=== PATIENT | female | born 1950 | race Caucasian/White ===

== ENCOUNTER → 2021-07-29 | Emergency (ER) | payer OTHER ==
[~2021-07-29] VITALS: Ht 157.5 cm; Wt 90.7 kg
[~2021-07-29] MED LIST: CEPHALEXIN500 MG PO
[2021-07-29 20:30] LABS: HEMATOCRIT 36.9 % (37.0-47.0); HEMOGLOBIN 12.5 gm/dL (12.0-15.0); MCH 30.2 pg (26.0-34.0); MCHC 33.9 g/dL (28.0-37.0); MCV 89.3 fL (80.0-100.0); RBC 4.13 mil/uL (4.20-5.00); RDW 14.4 % (10.5-14.5); WBC 5.6 thou/uL (4.0-11.0)
[2021-07-29 20:31] LABS: URINE BILIRUBIN NEGATIVE (Negative); URINE BLOOD 1+ (Negative); URINE CLARITY CLEAR; URINE COLOR YELLOW; URINE GLUCOSE-RANDOM* NEGATIVE (Negative); URINE KETONES 1+ (Negative); URINE NITRITE-REFLEX NEGATIVE (Negative); URINE PROTEIN (DIPSTICK) NEGATIVE (Negative); URINE SPECIFIC GRAVITY 1.015 (1.005-1.035); URINE UROBILINOGEN 0.2 E.U./dl (0.2-1.0)
[2021-07-29 20:37] LABS: CALCIUM 8.7 mg/dL (8.5-10.1); CREATININE 0.8 mg/dL (0.6-1.0); POTASSIUM 3.7 mmol/L (3.5-5.1)
[2021-07-29 20:43] LABS: ALBUMIN 3.6 g/dL (3.4-5.0); TOTAL BILIRUBIN 0.3 mg/dL (0.2-1.0); TOTAL PROTEIN 7.3 g/dL (6.4-8.2)
[2021-07-29 20:52] LABS: URINE LEUKOCYTES-REFLEX 3+ (Negative)
[2021-07-29 20:58] LABS: CASTS None Seen /LPF (None Seen); SQUAMOUS >10 Many /LPF (0-3); URINE RBC 3-10 Few /HPF (NONE SEEN); URINE WBC-REFLEX >25 Many /HPF (0-5)
[2021-07-29 20:59] LABS: BACTERIA-REFLEX 1-9 Few /HPF (None Seen); CRYSTALS None Seen /LPF (None Seen); RENAL EPITHELIAL CELLS 0-3 Few /LPF (None Seen)
[2021-07-29 21:19] VITALS: BP 158/98
== END ==
LOC: ER 18:56
PROVIDERS: Nurse Practitioner Family
DX: U07.1 COVID-19 (principal); N39.0 Urinary tract infection, site not specified; E78.00 Pure hypercholesterolemia, unspecified; Z88.0 Allergy status to penicillin; Z88.2 Allergy status to sulfonamides